=== PATIENT | male | born 1995 | race Caucasian/White ===

== ENCOUNTER 2024-11-22 11:24 | Outpatient (CLI) | payer BC, SELFPAY ==
--- NOTE | ~2024-11-22 | MR_ITS ---
MRI of the right knee Clinical history: Internal derangement, instability Technique: Coronal proton density and proton density-weighted images, sagittal proton-density and T2 fat-sat images, and axial proton-density fat-saturated images were acquired. Findings: There is complete tear at the midportion of the ACL. Posterior cruciate ligament is intact. Medial collateral ligament and the lateral collateral ligament complex are intact. Popliteus tendon is intact. There is a large bucket-handle tear of the medial meniscus with flipped handle fragment into the inte rcondylar notch region. Lateral meniscus is intact, without evidence of tear. Articular cartilage is relatively well preserved throughout the knee. Probable focal low-grade chondr al lesion at the central aspect of the medial femoral condyle. Bone marrow signals are intact. Extensor mechanism is intact. Large joint effusion present. No Andre's cyst. Impression: Complete ACL tear at its midportion. Large bucket-handle tear of the medial meniscus with handle fragment flipped into the intercondylar n otch region. Large joint effusion. Reviewed, dictated and finalized at location . Impression: Complete ACL tear at its midportion. Large bucket-handle tear of the medial meniscus with handle fragment flipped in to the intercondylar notch region. Large joint effusion.
== END 2024-11-22 11:25 | disposition home or self-care (01) ==
PROVIDERS: PCP Family Medicine Sports Medicine; Visit Provider Family Medicine Sports Medicine
DX: M25.461 Effusion, right knee (principal); S83.211A Bucket-handle tear of medial meniscus, current injury, right knee, initial encounter; X58.XXXA Exposure to other specified factors, initial encounter
CPT/HCPCS: 73721

== ENCOUNTER 2025-03-05 16:37 | Emergency (ER) | payer BC, SELFPAY ==
--- NOTE | ~2025-03-05 | XR_ITS ---
EXAMINATION: XR chest 2V 03/05/2025 17:18 INDICATION: Chest pain PROCEDURE: 2 view chest COMPARISON: 09/24/2008 FINDINGS: The lungs are clear. The cardiomediastinal silhouette is within normal limits. There are no pleural effusions. There is no pneumothorax suspected. IMPRESSION: 1: NO ACUTE CARDIOPULMONARY DISEASE. Reviewed, dictated and finalized at location O.
--- NOTE | 2025-03-05 16:39 | ECG_ITS ---
Test Date: 2025-03-05 16:44:06 Measurements Intervals [place] Rate: 103 P: 56 MT: 191 QRS: 45 QRSD: 94 T: 16 QT: 321 QTc: 421 Interpretive Statements SINUS TACHYCARDIA POSSIBLE LEFT ATRIAL ENLARGEMENT [-0.1mV P-WAVE IN V1/V2] ABNORMAL RHYTHM ECG No previous ECG available for comparison Electronically Signed On 03-06-2025 15:14:11 CDT by Jasen Barrett M.D.
--- OUTSIDE RECORDS SUMMARY | 2025-03-05 16:55 | XMS_ITS | Clinical Summary ---
Author Organization [facility] Virtual Care Address [address] [place] [address] Phone Care Team Providers Care Mutuel Clerk Name Role Phone Moy Hill MD Primary Care Provide r Allergies No known active allergies Medications No known medications Active Problems No known active problems Encounters Date Type Department Care Team Description 12/03/2024 3:35 PM CDT Ancillary Procedure [facility] Imaging at [address] [phone] Acute pain of right knee 12/03/2024 3:30 PM CDT Ancillary Procedure [facility] Imaging at [address] [phone] 12/03/2024 3:15 PM CDT Office Visit [facility] [address] [place] [place] [phone] Flo Gomez MD Acute pain of right knee (Primary Dx); Rupture of anterior cruciate ligament of right knee, initial encounter; Bucket-handle tear of medial meniscus of right knee as current injury, initial encounter 12/03/2024 Orders Only [facility] [address] [place] [phone] Flo Gomez MD BMI 40.0-44.9, adult (HCC) (Primary Dx) 12/03/2024 Telephone [facility] [address] [place] [phone] Flo Gomez MD Surgical Clearance from Last 3 Months Family History Medical History Relation Name Comments Basia-Danlos syndrome Mother Relation Name Status Comments Mother Social History Tobacco Use Types Packs/Day Years Used Date Smoking Tobacco: Never Smokeless Tobacco: Never Tobacco Cessation:Counseling Given: Not Answered Sex and Gender Information Value Date Recorded Sex Assigned at Not on file 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 Gender Identity Not on file Sexual Orientation Not on file Obstetrics History Last Filed Vital Signs Vital Sign Reading Time Taken Comments Blood Pressure 141/85 12/03/2024 4:01 PM CDT Pulse 78 12/03/2024 4:01 PM CDT Temperature 36.7 C (98 F) 10/09/2024 12:49 PM CDT Respiratory Rate 24 10/09/2024 12:49 PM CDT Oxygen Saturation 98% 10/09/2024 12:49 PM CDT Inhaled Oxygen Concentration - - Weight 141.3 kg (311 lb 8 oz) 12/03/2024 4:01 PM CDT Height 177.8 cm (5' 10) 12/03/2024 4:01 PM CDT Body Mass Index 44.7 12/03/2024 4:01 PM CDT Plan of Treatment Health Maintenance Due Date Last Done Comments Depression Screening 1997 Hepatitis C Screening 1997 DTaP/Tdap/Td Vaccine (1 - Tdap) 2008 Varicella Vaccines (1 of 2 - 13+ 2-dose series) 2010 Hepatitis B Screening 09/29/2015 Regular Well Visit/Exam 18-64 09/29/2015 HPV Vaccines (1 - 3-dose SCD M series) 2024 Influenza Vaccine (#1) 2025 Pneumococcal vaccine <65 Aged Out No longer eligible based on patient's age to complete this topic Procedures Procedure Name Priority Date/Time Associated Diagnosis Comments XR KNEE RIGHT 1 OR 2 VIEWS Schedule Routine, Read Routine (OP Routine) 12/03/2024 3:33 PM CDT Acute pain of right knee XR PELVIS 1 OR 2 VIEWS Schedule Routine, Read Routine (OP Routine) 12/03/2024 3:33 PM CDT Acute pain of right knee from Last 3 Months Results * XR Knee Right 1 or 2 Views (12/03/2024 3:33 PM CDT) Anatomical Region Laterality Modality Lower Extremities, Knee Right Digital Radiography Narrative 12/03/2024 4:29 PM CDT AP view bilateral knees shows well-preserved joint spaces no fracture subluxation or dislocation Flo Gomez MD IMG XR PROCEDURES Final Resu lt * XR Pelvis 1 or 2 Views (12/03/2024 3:33 PM CDT) Anatomical Region Laterality Modality Body, Pelvis N/A Digital Radiogra phy Narrative 12/03/2024 4:28 PM CDT AP pelvis shows no fracture subluxation or dislocation normal joint spaces Flo Gomez MD G XR PROCEDURES Final Resu lt from Last 3 Months Insurance [employer] [facility] Care Teams Mutuel Clerk Relationship Specialty Start Date End Date Moy Hill MD [address] [phone] PCP - General 07/18/17
[2025-03-05 16:57] VITALS: BP 121/106; PULSE 103; RESP 16; TEMP 37.3; O2SAT 100
[2025-03-05 17:06] LABS: Hematocrit 43.8 % (42.0-52.0); Hemoglobin 14.5 g/dL (14.0-18.0); Immature Granulocyte Percent A 0.4 % (0-0.5); Lymphocytes Absolute Auto 1.86 K/mm3 (0.9-3.2); Mean Corpuscular HGB Conc 33.1 g/dl (32-36); Mean Corpuscular Hemoglobin 27.0 pg (26-34); Mean Corpuscular Volume 81.6 fl (80-100); Nucleated Red Blood Cells Absolute Auto 0.000 K/mm3 (0.0-0.012); Nucleated Red Blood Cells Perc 0.0 % (0.0-0.2); Platelet Count Result 248 k/mm3 (150-375); Red Blood Count 5.37 M/mm3 (4.6-6.20); White Blood Count 7.8 K/mm3 (4.5-10.0)
[2025-03-05 17:16] LABS: Alanine Aminotransferase 33 U/L (6-50); Albumin Level 4.8 g/dL (3.5-5.1); Alkaline Phosphatase 60 U/L (38-126); Anion Gap 11 mmol/L (4-12); Aspartate Amino Transferase 27 U/L (17-59); Bilirubin,Total 0.7 mg/dL (0.2-1.3); Blood Urea Nitrogen 12 mg/dL (9-20); Calcium 9.1 mg/dL (8.4-10.2); Carbon Dioxide 25 mmol/L (22-30); Chloride 101 mmol/L (98-107); Estimated CRCL calculation 122 ml/min; Estimated Glomerular Filt Rate > 60; Glucose 109 mg/dL (65-110); Lipase 133 U/L (23-300); Potassium 3.9 mmol/L (3.4-5.0); Sodium 137 mmol/L (137-145); Total Protein 8.5 g/dL (6.3-8.2)
[2025-03-05 17:19] LABS: INR 1.0; Partial Thromboplastin Time 27.6 Seconds (22.3-36.8); Prothrombin Time 13.2 Seconds (11.1-14.7)
[2025-03-05 17:27] LABS: Troponin I < 0.012 ng/mL (0.000-0.034)
--- NOTE | 2025-03-05 18:03 | ED_ITS ---
HPI - Chest Pain General Chief Complaint: Chest Pain Stated Complaint: CP, left arm pain Time Seen by Provider: 03/05/25 17:13 Source: patient Mode of arrival: ambulatory Limitations: no limitations History of Present Illness HPI narrative: This is a 29-year-old male that presents to the emergency department for chest pain. Ongoing intermittently since yesterday. Reports the pain is dull in nature. No known alleviating or exacerbating factors. Has had no pain while in the ER. Blood pressure noted to be elevated upon arrival, he reports history of white coat hypertension. Related Data Allergies Allergy/AdvReac Type Severity Reaction Status Date / Time No Known Allergies Allergy Verified 03/05/25 17:02 Review of Systems 2 Review of Systems: All systems reviewed & are unremarkable except as noted in HPI and below Exam 2 Narrative: GENERAL: Well-appearing, well-nourished, and in no acute distress. HEAD: Normocephalic, atraumatic. EYES: EOMI. CHEST: Clear to auscultation. No respiratory distress. No wheezes rales or rhonchi HEART: Regular rate and rhythm. No murmur heard. Normal peripheral pulses. EXTREMITIES: Normal range of motion. No edema. SKIN: Warm, dry, no rash. NEURO: No focal deficits. Alert and oriented x3. PSYCH: Normal mood and affect Course Course Emergency Course: Patient updated on his workup and agrees with plan of care Vital Signs Vital signs: Vital Signs Temperature 99.2 F 03/05/25 16:57 Pulse Rate 103 H 03/05/25 16:57 Respiratory Rate 16 03/05/25 16:57 Blood Pressure 121/106 H 03/05/25 16:57 Pulse Oximetry 100 03/05/25 16:57 Oxygen Delivery Room Air 03/05/25 16:57 Temperature 98.5 F 03/05/25 19:17 Pulse Rate 92 03/05/25 19:17 Respiratory Rate 21 H 03/05/25 19:17 Blood Pressure 150/93 H 03/05/25 19:17 Pulse Oximetry 100 03/05/25 19:17 Oxygen Delivery Room Air 03/05/25 18:40 MDM - Chest Pain MDM Narrative Medical decision making narrative: Patient presents the emergency department for chest pain ongoing intermittently since yesterday. Hypertensive upon arrival, this down trended without intervention. CBC metabolic panel without concerning findings. EKG without acute ST changes, baseline and 3 hour troponin are negative. Chest x-ray without acute cardiopulmonary abnormality. Patient was updated on his workup and agrees with plan of care. He has follow-up with primary provider. He was given warnings to return to the ER Differential Diagnosis Differential diagnosis: Likely stable angina, atypical chest pain, costochondritis and chest pain Lab Data Attestation: I reviewed the patient's lab results. 03/05/25 16:56 03/05/25 16:56 Labs: Lab Results 03/05/25 03/05/25 Range/Units 16:56 19:27 WBC 7.8 (4.5-10.0) K/mm3 RBC 5.37 (4.6-6.20) M/mm3 Hgb 14.5 (14.0-18.0) g/dL Hct 43.8 (42.0-52.0) % MCV 81.6 (80-100) fl MCH 27.0 (26-34) pg MCHC 33.1 (32-36) g/dl RDW 13.3 (11.5-14.5) % Plt Count 248 (150-375) k/mm3 MPV 11.2 H (7.4-10.4) fl Immature Gran % (Auto) 0.4 (0-0.5) % Neut % (Auto) 68.3 (45.5-73.1) % Lymph % (Auto) 23.8 (18.3-44.2) % [place] % (Auto) 6.4 (2.6-8.5) % Eos % (Auto) 0.1 (0-4.4) % Baso % (Auto) 1.0 (0.2-1.2) % Lymph # (Auto) 1.86 (0.9-3.2) K/mm3 [place] # (Auto) 0.5 (0.1-0.6) K/mm3 Eos # (Auto) 0.0 (0-0.3) K/mm3 Baso # (Auto) 0.1 (0.0-0.1) K/mm3 Abs Immat Gran (auto) 0.03 (0.00-0.031) K/mm3 Absolute Neuts (auto) 5.4 (1.3-6.7) K/mm3 Absolute Nucleated RBC 0.000 (0.0-0.012) K/mm3 Nucleated RBC % 0.0 (0.0-0.2) % PT 13.2 (11.1-14.7) Seconds INR 1.0 APTT 27.6 (22.3-36.8) Seconds Sodium 137 (137-145) mmol/L Potassium 3.9 (3.4-5.0) mmol/L Chloride 101 (98-107) mmol/L Carbon Dioxide 25 (22-30) mmol/L Anion Gap 11 (4-12) mmol/L BUN 12 (9-20) mg/dL Creatinine 1.19 (0.7-1.3) mg/dL Estim Creat Clear Calc 122 ml/min Estimated GFR > 60 (59 - ) Glucose 109 (65-110) mg/dL Calcium 9.1 (8.4-10.2) mg/dL Total Bilirubin 0.7 (0.2-1.3) mg/dL AST 27 (17-59) U/L ALT 33 (6-50) U/L Alkaline Phosphatase 60 (38-126) U/L Troponin I < 0.012 < 0.012 (0.000-0.034) ng/mL Total Protein 8.5 H (6.3-8.2) g/dL Albumin 4.8 (3.5-5.1) g/dL Lipase 133 (23-300) U/L Imaging Data Radiologist's impression: ITS Impressions Chest X-Ray 03/05/25 17:21 IMPRESSION: 1: NO ACUTE CARDIOPULMONARY DISEASE. ECG Data EKG #1: ECG completion date: 03/05/25 EKG Interpretation: normal rate, sinus rhythm, no ST changes and normal QT Critical Care Time Critical Care Time Critical Care Time: No Discharge Plan Discharge Clinical Impression: Chest pain Qualifiers: Chest pain type: unspecified Qualified Code(s): R07.9 - Chest pain, unspecified Patient Disposition: Home Condition: Improved Instructions: Chest Pain (ED) Additional Instructions: Return to the emergency department if you experience worsening chest pain, shortness of breath, or any other symptoms that are concerning to you. Your blood work, imaging, EKG is reassuring today Follow up with your primary care doctor for further evaluation Patient Language: Estonian Follow-up/Referrals: Corbin,Easton Parrish DO [Primary Care Provider, Unknown] Quality HEART score for chest pain patients History: slightly suspicious ECG: normal Age: < or = to 45 years Risk factors: 1 or 2 risk factors Troponin: < or = to 1x normal limit Heart score: 1
[2025-03-05 18:40] VITALS: O2SAT 97
--- OUTSIDE RECORDS SUMMARY | 2025-03-05 18:52 | XMS_ITS | Clinical Summary ---
Author Organization [facility] Virtual Care Address [address] [place] [address] Phone Care Team Providers Care Boat Mechanic Name Role Phone Moy Hill MD Primary Care Provide r Allergies No known active allergies Medications No known medications Active Problems No known active problems Encounters Date Type Department Care Team Description 12/03/2024 3:35 PM CDT Ancillary Procedure [facility] Imaging at [address] [phone] Acute pain of right knee 12/03/2024 3:30 PM CDT Ancillary Procedure [facility] Imaging at [address] [phone] 12/03/2024 3:15 PM CDT Office Visit [facility] [address] [place] [phone] Flo Gomez MD Acute pain of right knee (Primary Dx); Rupture of anterior cruciate ligament of right knee, initial encounter; Bucket-handle tear of medial meniscus of right knee as current injury, initial encounter 12/03/2024 Orders Only [facility] [address] [place] [phone] Flo Gomez MD BMI 40.0-44.9, adult (HCC) (Primary Dx) 12/03/2024 Telephone [facility] [address] [place] [phone] Flo Gomez MD Surgical Clearance from Last 3 Months Family History Medical History Relation Name Comments Basia-Danlos syndrome Mother Relation Name Status Comments Mother Social History Tobacco Use Types Packs/Day Years Used Date Smoking Tobacco: Never Smokeless Tobacco: Never Tobacco Cessation:Counseling Given: Not Answered Sex and Gender Information Value Date Recorded Sex Assigned at Not on file 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
[2025-03-05 19:17] VITALS: BP 150/93; PULSE 92; RESP 21; TEMP 36.9; O2SAT 100
--- NOTE | 2025-03-05 19:23 | ECG_ITS ---
Test Date: 2025-03-05 19:34:59 Measurements Intervals [place] Rate: 75 P: 53 SC: 208 QRS: 24 QRSD: 86 T: 13 QT: 331 QTc: 370 Interpretive Statements SINUS RHYTHM Compared to ECG 03/05/2025 16:44:06 Sinus tachycardia no longer present Electronically Signed On 03-06-2025 15:18:03 CDT by Jasen Barrett M.D.
--- NOTE | 2025-03-05 19:24 | PC.NURSE ---
Received report from DESHAWN Mcfadden for cont. of care. Pt lying on stretcher, respirations even and unlabored. Pt on cont. cardiac and oxygen monitoring. Pt denies any pain and/or discomfort at this time. Pt updated on plan of care, pt appears NAD.
[2025-03-05 19:55] LABS: Troponin I < 0.012 ng/mL (0.000-0.034)
[2025-03-05 21:50] VITALS: BP 159/94; PULSE 86; RESP 18; O2SAT 99
== END 2025-03-05 21:51 | disposition home or self-care (01) ==
PROVIDERS: Emergency Medicine; Emergency Provider Physician Assistant; PCP Family Medicine Sports Medicine
DX: R07.9 Chest pain, unspecified (principal)
CPT/HCPCS: 36415; 71046; 80053; 83690; 84484; 85025; 85610; 85730; 93005; 99284